=== PATIENT | female | born 1955 | race Caucasian/White ===

== ENCOUNTER 2017-05-25 19:52 | Emergency (ER) | payer BC, OTHER ==
[~2017-05-25] VITALS: Ht 154.9 cm; Wt 75.0 kg
[2017-05-25 20:11] VITALS: BP 181/94
[2017-05-25] MEDS ORDERED: IBUP200C10 PO (20:19)
[2017-05-25] MEDS ORDERED: HYDR200T3 PO (20:19)
[2017-05-26] MEDS ORDERED: VALT1TAB PO (00:27)
[2017-05-26] MEDS ORDERED: valACYclovir HCL 500 MG TAB PO ONE (00:30)
== END 2017-05-26 00:39 | disposition home or self-care (01) ==
LOC: M ED 19:52
DX: B02.9 Zoster without complications (principal); M06.9 Rheumatoid arthritis, unspecified; Z79.899 Other long term (current) drug therapy

== ENCOUNTER → 2021-04-13 | Outpatient (CLI) | payer MEDICARE, BC, OTHER ==
[~2021-04-13] MED LIST: HYDR200T3 PO; IBUP200C25 PO; VALT1TAB PO
== END ==
LOC: M LABSMTC 11:52
PROVIDERS: ATTEND Pediatrics
DX: Z20.828 Contact with and (suspected) exposure to other viral communicable diseases (principal); Z11.52 Encounter for screening for COVID-19
CPT/HCPCS: C9803; U0003